=== PATIENT | female | born 1955 | race Caucasian/White ===

== ENCOUNTER 2023-03-07 14:20 | Emergency (ER) | payer MEDICARE, OTHER ==
[~2023-03-07] VITALS: Ht 162.6 cm; Wt 59.9 kg
--- NOTE | 2023-03-07 15:00 | NUR ---
BIBS C/O RIGHT RIB PAIN RADIATING TO BACK X 2 DAYS. PT DENIES TRAUMA ON AREA.
--- NOTE | 2023-03-07 15:15 | NUR ---
AT BEDSIDE FOR EVAL
--- NOTE | 2023-03-07 15:42 | NUR ---
BLOOD DRAWN AND SENT TO LAB
[2023-03-07 15:54] LABS: BASOPHILS % (AUTO) 0.2 % (0.0-2.0); EOSINOPHILS % (AUTO) 0.3 % (0.0-6.0); HEMATOCRIT 37 % (33-45); HEMOGLOBIN 12.3 g/dL (11.5-14.8); LYMPHOCYTES # (AUTO) 0.7 K/uL (0.8-4.8); LYMPHOCYTES % (AUTO) 14.9 % (20.0-44.0); MEAN CORPUSCULAR HGB CONC 34 g/dl (31.0-36.0); MEAN CORPUSCULAR VOLUME 88 fL (82-100); MONOCYTES # (AUTO) 0.5 K/uL (0.1-1.30); MONOCYTES % (AUTO) 11.4 % (2.0-12.0); NEUTROPHILS # (AUTO) 3.4 K/uL (1.8-8.9); NEUTROPHILS % (AUTO) 73.2 % (43.0-81.0); PLATELET COUNT (AUTO) 95 K/uL (150-450); RED BLOOD CELL COUNT(AUTO) 4.15 MIL/uL (4.0-5.2); WHITE BLOOD COUNT (AUTO) 4.6 K/uL (4.3-11.0)
[2023-03-07 16:03] LABS: CALCIUM, SERUM 8.8 mg/dL (8.5-10.1); CARBON DIOXIDE 25 mmol/L (21-32); CHLORIDE 99 mmol/L (98-107); CREATININE 0.9 mg/dL (0.6-1.3); GLUCOSE 115 mg/dL (74-106); SODIUM SERUM 132 mmol/L (136-145); UREA NITROGEN, BLOOD 12 mg/dL (7-18)
[2023-03-07] MEDS ORDERED: IV NS 0.9% 250 ML IV ONE (16:35)
[2023-03-07] MEDS ORDERED: IOHEXOL-350 100 ML VIAL IV ONE (16:35)
[2023-03-07] MEDS ORDERED: CT SWABBABLE VALVE TRANS SET 1 EA INFUS.SET MC ONE (16:35)
[2023-03-07 16:44] LABS: BAND % (MANUAL) 2 % (0.0-5.0); EOSINOPHILS % (MANUAL) 1 % (0-4); LYMPHOCYTES % (MANUAL) 12 % (16-48); MONOCYTES % (MANUAL) 7 % (0-11.0); NEUTROPHILS % (MANUAL) 78 (42-76)
--- NOTE | 2023-03-07 18:15 | NUR ---
PATIENT TAKEN TO CT VIA [facility]
--- NOTE | 2023-03-07 19:52 | NUR ---
Patient does not wish to proceed with medical care recommended by Dr. VYAS. Patient given information related to possible complications, up to and including , which could occur as a result of leaving the hospital at this time. Patient verbalizes understanding of risks involved due to leaving against medical advice. Patient has signed AMA form. IV removed. Catheter intact and site benign. Pressure and 4x4 applied to site. No bleeding noted.
[2023-03-07 19:54] VITALS: BP 115/62
== END 2023-03-07 19:52 | disposition left against medical advice (07) ==
LOC: ER 14:26
DX: R58 Hemorrhage, not elsewhere classified (principal); Z60.2 Problems related to living alone; Z91.010 Allergy to peanuts
CPT/HCPCS: 99285; 74174; 71275; 93005; 71100; 85025; 80048; 85378; 36415; 84484; 85007; J7050; Q9967